=== PATIENT | female | born 2000 | race African-American/Black ===

== ENCOUNTER 2024-03-13 21:28 | Emergency (ER) | payer BC ==
[2024-03-13 21:35] VITALS: BP 119/79; PULSE 73; RESP 18; TEMP 98.7; BMI 22.4
[2024-03-13] MEDS ORDERED: ACETAMINOPHEN INJECTION 100 ML IVPB ONE (21:59)
[2024-03-13] MEDS ORDERED: KETOROLAC TROMETHAMINE 30 MG/1 ML VIAL ONE (22:00)
[2024-03-13] MEDS: SODIUM CHLORIDE 0.9% 500 ML INFUS.BAG IV ONE (22:15)
[2024-03-13] MEDS: ACETAMINOPHEN 1000 MG/100 ML BAG IVPB ONE (22:15)
[2024-03-13] MEDS: KETOROLAC TROMETHAMINE 30 MG/1 ML VIAL IVPUSH ONE (22:16)
[2024-03-13 22:41] LABS: BASO % 0.1 % (0-2.0); EOS % 0.5 % (0-4.5); HEMATOCRIT 38.9 % (32.4-45.2); HEMOGLOBIN 13.2 GM/dL (10.7-15.3); LYMPH % 24.3 % (8-40); MCH 30.6 pg (25.7-33.7); MEAN CELL VOLUME 89.8 fl (80-96); MEAN PLT VOLUME 7.6 fl (7.5-11.1); MONO % 5.2 % (3.8-10.2); NEUT % 69.9 % (42.8-82.8); PLATELET COUNT 311 10^3/uL (134-434); RBC 4.33 M/mm3 (3.60-5.2); RDW 12.7 % (11.6-15.6); WHITE BLOOD COUNT 5.9 K/mm3 (4.0-10.0)
[2024-03-13 22:58] LABS: CHLORIDE 105 mmol/L (98-107); POTASSIUM 4.7 mmol/L (3.5-5.1); SODIUM 139 mmol/L (136-145)
[2024-03-13 23:00] LABS: CALCIUM 9.1 mg/dL (8.5-10.1)
[2024-03-13 23:01] LABS: ALBUMIN 4.3 g/dl (3.4-5.0); ANION GAP 6 mmol/L (4-13); BLOOD UREA NITROGEN 8.5 mg/dL (7-18); CO2 28 mmol/L (21-32); GLUCOSE,RANDOM 130 mg/dL (74-106)
[2024-03-13 23:04] LABS: CREATININE 0.8 mg/dL (0.55-1.3); SGOT/AST 12 U/L (15-37)
[2024-03-13 23:06] LABS: BILIRUBIN,TOTAL 0.8 mg/dL (0.2-1); TOT PROT 7.8 g/dl (6.4-8.2)
[2024-03-13 23:07] LABS: ALK PHOS 61 U/L (45-117)
[2024-03-13 23:55] LABS: SGPT/ALT 19 U/L (13-61)
[2024-03-14 00:26] LABS: ERYTHROCYTE SEDIMENTATION RATE 4 mm/hr (0-20)
== END 2024-03-14 | disposition home or self-care (01) ==
LOC: JER 21:28
DX: G43.B0 Ophthalmoplegic migraine, not intractable (principal); M54.2 Cervicalgia; R53.83 Other fatigue; R11.0 Nausea
CPT/HCPCS: 36415; 80053; 85025; 85651; 86140; 99283-25; J0131